=== PATIENT | male | born 1990 | race Caucasian/White ===

== ENCOUNTER → 2016-08-31 | Outpatient (CLI) | payer OTHER ==
[~2016-08-31] MED LIST: BUPR150T11 PO; CATA0.1T PO; CELE10TA PO; STRA40CA PO
[2016-08-31 09:50] LABS: MEAN CORPUSCULAR HEMOGLOBIN 32.4 pg (27.0-33.0); MEAN CORPUSCULAR HGB CONC 36.4 g/dl (32.0-36.5); RED CELL DISTRIBUTION WIDTH 12.9 % (11.5-14.5); WHITE BLOOD COUNT 7.7 K/mm3 (4.0-10.0)
[2016-08-31 10:16] LABS: ALBUMIN 4.1 GM/DL (3.2-5.2); ALBUMIN/GLOBULIN RATIO 1.46 (1.00-1.93); ALKALINE PHOSPHATASE 61 U/L (45-117); ALT/SGPT 29 U/L (12-78); ANION GAP 5 MEQ/L (8-16); AST/SGOT 14 U/L (15-37); BILIRUBIN,TOTAL 0.6 MG/DL (0.2-1.0); BLOOD UREA NITROGEN 13 MG/DL (7-18); CALCIUM LEVEL 8.8 MG/DL (8.5-10.1); CARBON DIOXIDE LEVEL 29 MEQ/L (21-32); CHLORIDE LEVEL 106 MEQ/L (98-107); CREATININE FOR GFR 0.92 MG/DL (0.70-1.30); GLOMERULAR FILTRATION RATE > 60.0 (>60); GLUCOSE, FASTING 98 MG/DL (70-105); POTASSIUM SERUM 4.2 MEQ/L (3.5-5.1); SODIUM LEVEL 140 MEQ/L (136-145); TOTAL PROTEIN 6.9 GM/DL (6.4-8.2)
--- NOTE | 2016-09-02 00:07 | ECGEPIP ---
Stationary ECG Study [facility] Test Date: 2016-08-31 Pat Name: JOANNA AGUILERA Department: Room: - Gender: M It Security Consultant: : [id number] Requested By: Anjel Hernandez Order Number: [id number] Reading MD: Vance Alvarado Measurements Intervals [place] Rate: 75 P: 68 GA: 152 QRS: 51 QRSD: 86 T: 43 QT: 375 QTc: 420 Interpretive Statements SINUS RHYTHM Artifact noted on the baseline in the limb leads No prior tracing in the system Electronically Signed On 09-02-2016 0:07:35 EDT by Vance Alvarado
== END ==
LOC: M LAB 08:51
PROVIDERS: ATTEND Family Medicine
DX: F11.20 Opioid dependence, uncomplicated (principal)